=== PATIENT | male | born 1975 | race Caucasian/White ===

== ENCOUNTER 2017-11-06 10:07 | Emergency (ER) | payer SELFPAY ==
[2017-11-06] MEDS ORDERED: NORMAL SALINE 1000 ML 1,000 ML IV ONE (10:31)
[2017-11-06] MEDS ORDERED: ONDANSETRON 4 MG TAB.RAPDIS PO ONE (10:33)
--- NOTE | 2017-11-06 10:33 | ER Document Report ---
ED Medical Screen (RME) - General Chief Complaint: Flank Pain Stated Complaint: FLANK PAIN Time Seen by Provider: 11/06/17 10:28 Notes: RAPID MEDICAL EVALUATION DISCLOSURE I have seen this patient as part of a Rapid Medical Evaluation and, if applicable, placed any initially appropriate orders. The patient will be seen and fully evaluated, including a full history and physical exam, by a provider ( in Main ED or Fast Track) when a room becomes available. 42-year-old male here with complaints of right flank pain that started this morning progressively worsening constant waxing and waning in nature. Pain radiates from the flank into the abdomen and down into the groin. Pain is not worse with anything in particular. He states it improves sometimes with pressing on the area. He has had some nausea and vomiting. He has had to strain in order to urinate but he denies any dysuria hematuria. About 2 months ago, he was diagnosed via CT scan with a right-sided kidney stone (in [facility]). He does not believe that he ever passed it. He does not remember the exact size of the stone. EXAM Patient walking around the room and pain, unable to sit still No abdominal TTP TRAVEL OUTSIDE OF THE [place] IN LAST 30 DAYS: No - Related Data Allergies/Adverse Reactions: No Known Allergies Allergy (Verified 11/06/17 10:08) Physical Exam - Vital signs Vitals: Temp Pulse Resp BP Pulse Ox 97.7 F 82 24 H 127/99 H 94 11/06/17 10:13 11/06/17 10:13 11/06/17 10:13 11/06/17 10:13 11/06/17 10:13 Course - Vital Signs Vital signs: Temp Pulse Resp BP Pulse Ox 97.7 F 82 24 H 127/99 H 94 11/06/17 10:13 11/06/17 10:13 11/06/17 10:13 11/06/17 10:13 11/06/17 10:13
[2017-11-06 11:23] LABS: ABSOLUTE EOSINOPHILS # (AUTO) 0.1 10^3/uL (0.0-0.6); ABSOLUTE LYMPHOCYTES (AUTO) 1.7 10^3/uL (0.5-4.7); ABSOLUTE MONOCYTES (AUTO) 1.5 10^3/uL (0.1-1.4); ABSOLUTE NEUT (AUTO) 9.9 10^3/uL (1.7-8.2); BASOPHILS % (AUTO) 0.2 % (0-2); EOSINOPHILS % (AUTO) 0.5 % (0-6); HEMOGLOBIN 14.7 g/dL (13.5-17.0); LYMPHOCYTES % (AUTO) 13.1 % (13-45); MEAN CORPUSCULAR HEMOGLOBIN 30.1 pg (27.0-33.4); MEAN CORPUSCULAR HGB CONC 34.3 g/dL (32.0-36.0); MEAN CORPUSCULAR VOLUME 88 fl (80-97); MONOCYTES % (AUTO) 11.4 % (3-13); PLATELET COUNT 268 10^3/uL (150-450); RED BLOOD COUNT 4.89 10^6/uL (4.35-5.55); RED CELL DISTRIBUTION WIDTH 13.7 % (11.5-14.0); SEGMENTED NEUTROPHILS % (AUTO) 74.8 % (42-78); TOTAL CELLS COUNTED % (AUTO) 100 %; WHITE BLOOD COUNT 13.2 10^3/uL (4.0-10.5)
[2017-11-06 11:28] LABS: ALANINE AMINOTRANSFERASE 25 U/L (21-72); ALBUMIN 4.5 g/dL (3.5-5.0); ALKALINE PHOSPHATASE 80 U/L (38-126); ANION GAP 16 (5-19); ASPARTATE AMINO TRANSFERASE 46 U/L (17-59); BILIRUBIN,DIRECT 0.3 mg/dL (0.0-0.4); BILIRUBIN,TOTAL 0.9 mg/dL (0.2-1.3); BLOOD UREA NITROGEN 16 mg/dL (7-20); CALCIUM 9.7 mg/dL (8.4-10.2); CARBON DIOXIDE 24 mmol/L (22-30); CHLORIDE 105 mmol/L (98-107); GLUCOSE 99 mg/dL (75-110); POTASSIUM 4.1 mmol/L (3.6-5.0); SODIUM 145.1 mmol/L (137-145); TOTAL PROTEIN 8.3 g/dL (6.3-8.2)
[2017-11-06] MEDS ORDERED: HYDROMORPHONE HCL INJ/PF 2 MG/ML AMPULE IV ONE (11:28)
[2017-11-06] MEDS ORDERED: KETOROLAC TROMETHAMINE INJ/PF 30 MG/1 ML SDV IV ONE (11:28)
[2017-11-06 11:45] LABS: APPEARANCE,URINE CLEAR; BILIRUBIN,URINE NEGATIVE (NEGATIVE); GLUCOSE, URINE NEGATIVE (NEGATIVE); KETONES,URINE TRACE mg/dL (NEGATIVE); LEUKOCYTE ESTERASE,URINE NEGATIVE (NEGATIVE); NITRITE,URINE NEGATIVE (NEGATIVE); PROTEIN,URINE 30 mg/dL (NEGATIVE)
[2017-11-06 11:47] LABS: COLOR,URINE YELLOW
--- NOTE | 2017-11-06 12:22 | ER Document Report ---
ED General - General Mode of Arrival: Ambulatory Information source: Patient TRAVEL OUTSIDE OF THE [place] IN LAST 30 DAYS: No <PATRICK MARROQUIN - Last Filed: 11/06/17 13:24> <ERIKA JUNIOR - Last Filed: 11/06/17 18:08> - General Chief Complaint: Flank Pain Stated Complaint: FLANK PAIN Time Seen by Provider: 11/06/17 10:28 Notes: Patient is a 42 year old male with a history of kidney stones presents to the emergency department complaining of lower abdominal pain onset this morning. Patient states after breakfast today, on his way to work, he began to have lower abdominal pain that migrated into is pubic area. He states he was diagnosed with a kidney stone via CT scan 2 months ago and further states the pain is more severe today. Patient also complains of diaphoresis and nausea. Patient denies penile discharge, testicular pain or dyusria. Patient mentions using cocaine and meth recreationally and admits to last using 3 days ago. (PATRICK MARROQUIN) - Related Data Allergies/Adverse Reactions: No Known Allergies Allergy (Verified 11/06/17 10:08) Past Medical History - General Information source: Patient - Social History Smoking Status: Current Every Day Smoker Chew tobacco use (# tins/day): No Frequency of alcohol use: Occasional Drug Abuse: Cocaine, Methamphetamine Family History: Reviewed & Not Pertinent Patient has suicidal ideation: No Patient has homicidal ideation: No <PATRICK MARROQUIN - Last Filed: 11/06/17 13:24> Review of Systems - Review of Systems Constitutional: No symptoms reported EENT: No symptoms reported Cardiovascular: No symptoms reported Respiratory: No symptoms reported Gastrointestinal: See HPI, Abdominal pain Genitourinary: No symptoms reported Male Genitourinary: No symptoms reported Musculoskeletal: No symptoms reported Skin: No symptoms reported Hematologic/Lymphatic: No symptoms reported Neurological/Psychological: No symptoms reported -: Yes All other systems reviewed and negative <PATRICK MARROQUIN - Last Filed: 11/06/17 13:24> Physical Exam <PATRICK MARROQUIN - Last Filed: 11/06/17 13:24> <ERIKA JUNIOR - Last Filed: 11/06/17 18:08> - Vital signs Vitals: Temp Pulse Resp BP Pulse Ox 97.7 F 82 24 H 127/99 H 94 07/16/18 10:13 11/06/17 10:13 11/06/17 10:13 11/06/17 10:13 11/06/17 10:13 - Notes Notes: GENERAL: Alert, appears uncomfortable and annoyed, calmed down after interview. HEAD: Normocephalic, atraumatic. EYES: Pupils equal, round, and reactive to light. Extraocular movements intact. ENT: Oral mucosa moist, tongue midline. NECK: Full range of motion. Supple. Trachea midline. LUNGS: Clear to auscultation bilaterally, no wheezes, rales, or rhonchi. No respiratory distress. HEART: Regular rate and rhythm. No murmurs, gallops, or rubs. ABDOMEN: Soft, mild RLQ tenderness to palpation, does not radiate into testicles. . Non-distended. Bowel sounds present in all 4 quadrants. EXTREMITIES: Moves all 4 extremities spontaneously. No edema, radial and dorsalis pedis pulses 2/4 bilaterally. No cyanosis. NEUROLOGICAL: Alert and oriented x3. Normal speech. PSYCH: Initially annoyed, calmed down after interview. SKIN: Warm, dry, normal turgor. No rashes or lesions noted. (PATRICK MARROQUIN) Course - Laboratory Result Diagrams: 11/06/17 10:48 11/06/17 10:48 <PATRICK MARROQUIN - Last Filed: 11/06/17 13:24> - Laboratory Result Diagrams: 11/06/17 10:48 11/06/17 10:48 <ERIKA JUNIOR - Last Filed: 11/06/17 18:08> - Re-evaluation Re-evalutation: 11/06/17 12:15 Patient denies any additional pain medication after examination. (PATRICK MARROQUIN) 11/06/17 14:08 CBC shows slight leukocytosis at 13.2 likely due to demargination from pain and the hydroureter and hydronephrosis, CMP shows elevated creatinine at 1.47, no baseline available to compare to, urinalysis shows trace ketones, moderate blood , no leukocyte esterase or nitrites. No evidence of infection. Patient's CT scan shows a 12.5 x 7.8 mm stone at the right proximal ureter with hydroureter and hydronephrosis. I did discuss this case with Dr. Fernando the urologist natural remedy consultant from [facility] where the patient would prefer to follow-up as an outpatient if possible. Dr. Fernando agrees with discharged home as there is no evidence of infection and the patient has satisfactory pain control at this time. Patient will be discharged home and is asked to call Dr. Fernando office to arrange a follow-up appointment on Monday or . Patient will be prescribed Percocet for pain. Flomax will not be prescribed as a stone this large is not going to come out on its own and he will need intervention. This was discussed with Dr. Fernando who is in agreement. (ERIKA JUNIOR) - Vital Signs Vital signs: Temp Pulse Resp BP Pulse Ox 97.8 F 52 L 18 123/69 100 11/06/17 14:25 11/06/17 14:25 11/06/17 14:25 11/06/17 14:25 11/06/17 14:25 - Laboratory Laboratory results interpreted by me: 11/06/17 11/06/17 11/06/17 10:48 10:48 10:48 WBC 13.2 H Absolute Neutrophils 9.9 H Absolute Monocytes 1.5 H Sodium 145.1 H Creatinine 1.47 H Est GFR (Non-Af Amer) 53 L Total Protein 8.3 H Urine Protein 30 H Urine Ketones TRACE H Urine Blood MODERATE H Urine Urobilinogen 4.0 H Discharge <PATRICK MARROQUIN - Last Filed: 11/06/17 13:24> <ERIKA JUNIOR - Last Filed: 11/06/17 18:08> - Discharge Clinical Impression: Right ureteral calculus, Hydronephrosis of right kidney Condition: Stable Disposition: HOME, SELF-CARE Additional Instructions: You have a kidney stone on the right-hand side. It is 12.5 x 7.8 mm. This is going to need some sort of intervention to remove it. Dr. Fernando has agreed to see you in follow-up on Monday or . You will need to call his office to arrange a follow-up appointment. Please return if you develop fevers, your pain is uncontrolled or you develop any new or concerning symptoms. You are absolutely welcome to return to this hospital at any time for further concerns, please be aware that Dr. Fernando practices at [facility]. Prescriptions: Ondansetron [Zofran Odt 4 mg Tablet] 1 - 2 tab PO Q4HP PRN #10 tab.rapdis PRN Reason: Oxycodone HCl/Acetaminophen [Percocet 5-325 mg Tablet] 1 - 2 tab PO Q4H PRN #25 tablet PRN Reason: Phenazopyridine HCl [Pyridium 200 mg Tablet] 200 mg PO TID #7 tablet Referrals: CLARA FERNANDO MD [NO LOCAL MD] - Follow up as needed (Please call for an appointment to be seen on Monday or Monday or .) Scribe Attestation: 11/06/17 18:08 I personally performed the services described in the documentation, reviewed and edited the documentation which was dictated to the scribe in my presence, and it accurately records my words and actions. (ERIKA JUNIOR) Scribe Documentation - Scribe Written by Mikoe:: Zeferino Carrillo, 11/06/2017 12:26 acting as scribe for :: Shruti <PATRICK MARROQUIN - Last Filed: 11/06/17 13:24>
--- NOTE | 2017-11-06 12:48 | RADIOLOGY REPORT (SQ) ---
EXAM DESCRIPTION: CT LTD RENAL STONE PROTOCOL ON COMPLETED DATE/TIME: 11/06/2017 12:17 pm REASON FOR STUDY: R flank pain COMPARISON: None. TECHNIQUE: CT scan of the abdomen and pelvis performed without intravenous or oral contrast. Images reviewed with lung, soft tissue, and bone windows. Reconstructed coronal and sagittal MPR images revi ewed. All images stored on PACS. All CT scanners at this facility use dose modulation, iterative reconstruction, and/or weight based d osing when appropriate to reduce radiation dose to as low as reasonably achievable (ALARA). [facility]: Dose Right [facility]: CareDose [facility]: Dose Right [facility]: Teradose 4D [facility]: Smart Tagged RADIATION DOSE: CT Rad equipment meets quality standard of care and radiation dose reduction techniq ues were employed. CTDIvol: 16.1 mGy. DLP: 964 mGy-cm.mGy. LIMITATIONS: None. FINDINGS: LOWER CHEST: No significant findings. No nodules or infiltrates. NON-CONTRASTED LIVER, SPLEEN, ADRENALS: Evaluation limited by lack of IV contrast. No identified sign ificant masses. PANCREAS: No masses. No peripancreatic inflammatory changes. GALLBLADDER: No identified stones by CT criteria. No inflammatory changes to suggest cholecystitis. RIGHT KIDNEY AND URETER: No suspicious masses. Assessment limited by lack of IV contrast. There is an obstructing 12.5 x 7.8 mm in diameter calculus in the proximal right ureter. There is hydronephr osis of the right kidney and dilatation of the right ureter proximal to this level. LEFT KIDNEY AND URETER: No suspicious masses. Assessment limited by lack of IV contrast. No signifi cant calcifications. No hydronephrosis or hydroureter. AORTA AND RETROPERITONEUM: No aneurysm. No retroperitoneal masses or adenopathy. BOWEL AND PERITONEAL CAVITY: No obvious masses or inflammatory changes. No free fluid. APPENDIX: Normal. PELVIS, BLADDER, AND ABDOMINAL WALL:No abnormal masses. No free fluid. Bladder normal. BONES: No significant findings. OTHER: No other significant finding. IMPRESSION: Obstructing calculus in the proximal right ureter as noted above. Other findings as not ed above COMMENT: Quality ID # [id number]: Final reports with documentation of one or more dose reduction techniques (e.g., Automated exposure control, adjustment of the mA and/or kV according to patient size, use of iterative reconstruction technique) TECHNICAL DOCUMENTATION: JOB ID: [id number] [employer]- All Rights Reserved Reading location - IP/workstation name: [email or web address]
[2017-11-06] MEDS ORDERED: OXYCODONE-ACETAMINOPHEN 5-325 MG TABLET PO ONE (13:55)
[2017-11-06 14:31] VITALS: BP 123/69
== END 2017-11-06 14:30 | disposition home or self-care (01) ==
LOC: EDBD → ER 10:07
DX: N13.2 Hydronephrosis with renal and ureteral calculous obstruction (principal); R61 Generalized hyperhidrosis; R11.0 Nausea; F15.10 Other stimulant abuse, uncomplicated; F14.10 Cocaine abuse, uncomplicated; D72.829 Elevated white blood cell count, unspecified
CPT/HCPCS: 99284; 96361; 96374; 96375; 36415; 87086; 83690; 85025; 80053; 81001; 76380; S0119; J1885; J1170; J7030